=== PATIENT | male | born 1990 | race Caucasian/White ===

== ENCOUNTER 2017-01-29 22:18 | Emergency (ER) | payer MEDICAID ==
[~2017-01-29] VITALS: Ht 185.4 cm; Wt 198.4 kg
[~2017-01-29 22:18] MED LIST: HYDR-2966 PO; IBUP-974 PO
[2017-01-29 22:31] VITALS: BP 155/89
--- NOTE | 2017-01-29 23:26 | NUR ---
PATIENT LEFT WITHOUT BEING SEEN BY DR. GARY. NO FURTHER CARE PROVIDED FOR PATIENT.
== END 2017-01-29 23:26 | disposition left against medical advice (07) ==
LOC: MED 22:18
DX: R21 Rash and other nonspecific skin eruption (principal); Z53.21 Procedure and treatment not carried out due to patient leaving prior to being seen by health care provider